=== PATIENT | female | born 1930 | race Caucasian/White ===

== ENCOUNTER 2017-05-01 11:25 | Day surgery (SDC) | payer MEDICARE, OTHER ==
[~2017-05-01 11:25] MED LIST: RINGER'S SOLUTION,LACTATED 1,000 ML IV PRN
[2017-05-01] MEDS ORDERED: RINGER'S SOLUTION,LACTATED 1,000 ML IV ONE (12:15)
[2017-05-01] MEDS ORDERED: RINGER'S SOLUTION,LACTATED 1,000 ML IV PRN (13:03)
--- NOTE | 2017-05-02 07:11 | OR ---
Operative Report - Dictated Report Narrative: OPERATIVE REPORT DATE OF OPERATION: 05/01/2017 PREOPERATIVE DIAGNOSIS: Personal history of colon cancer and colon polyps. Family history of colon cancer. POSTOPERATIVE DIAGNOSIS: Severe diverticulosis OPERATION: Colonoscopy SURGEON: Juarez Ashby MD ANESTHESIA: ERMA Bird CRNA INDICATIONS FOR PROCEDURE: The patient is a 86-year-old female referred by Dr Goetz. In 2010 she had findings of villous adenomas and a transverse colon cancer. 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 The patient's sister also had colon cancer in her 70s. The patient was advised follow-up colonoscopy however has not had a subsequent exam. She is currently asymptomatic with exception of alternating hard and loose stools. FINDINGS: Very severe sigmoid diverticulosis. Otherwise normal colonoscopy to the cecum NARRATIVE OF PROCEDURE: The patient was identified in the holding area, and prior to the administration of anesthetic, a multidisciplinary timeout was observed. With the patient in the left lateral position and after the administration of intravenous sedation, the perineum was inspected. There was no evidence of pilonidal disease or skin breakdown. The external appearance of the anus was normal. Sphincter tone was good. The flexible fiberoptic colonoscope was inserted into the rectum which was insufflated with air. The rectal mucosa and submucosal vascular pattern appeared normal, the prep was seen to be complete. The scope was advanced through the sigmoid colon, which was very tortuous and contained numerous large non-impacted noninflamed diverticular openings. The scope was advanced up the descending colon, and around the splenic flexure where the triangular haustral architecture of the transverse colon was seen. The scope was advanced across the transverse colon, around the hepatic flexure to the cecum, where the confluence of tenia and the ileocecal valve were identified. The mucosa at this level appeared normal. The scope was then slowly withdrawn in a circular fashion so that all aspects of colonic mucosa were inspected. The colon was normal in caliber. The haustral architecture appeared well preserved throughout with no evidence of external compression. The mucosa and submucosal vascular pattern appeared normal, specifically there was no gross evidence to suggest colitis or inflammatory bowel disease and no AV malformations were seen. The site of transverse colon anastomosis could not be identified. The diverticulosis was very severe in degree and confined primarily to the sigmoid colon. No polyps were encountered. The scope was gradually withdrawn to the level of the rectum. As much insufflated air as possible was removed. The scope was withdrawn from the patient and the procedure terminated. The patient tolerated the anesthetic and procedure well without complication and was transferred back to the ambulatory surgery area awake and in stable condition. The patient remained stable throughout a period of postoperative observation. She denied abdominal discomfort, was able to tolerate by mouth intake, and was up without assistance. I shared the operative findings with the patient and she was given copies of the photographs which appear in the medical record. She was discharged home with instructions not to engage in hazardous activity today , but may resume normal activity tomorrow, and advance diet as tolerated. She is to continue those medications as listed in the history and physical exam. RECOMMENDATION: She does not wish to pursue further colon screenings, however the recommendation would be for an exam in 5 years Reviewed and electronically signed
[2017-05-02 08:35] VITALS: BP 144/63
== END 2017-05-01 11:26 | disposition home or self-care (01) ==
LOC: AMB 11:25
PROVIDERS: ATTEND Surgery
PROC: 0DJD8ZZ Inspection of Lower Intestinal Tract, Via Natural or Artificial Opening Endoscopic (ICD-10-PCS; principal; 2017-05-01)
DX: Z12.11 Encounter for screening for malignant neoplasm of colon (principal); Z85.038 Personal history of other malignant neoplasm of large intestine; Z80.0 Family history of malignant neoplasm of digestive organs; K57.90 Diverticulosis of intestine, part unspecified, without perforation or abscess without bleeding; Z95.0 Presence of cardiac pacemaker; I48.91 Unspecified atrial fibrillation